=== PATIENT | female | born 1990 | race Caucasian/White ===

== ENCOUNTER 2021-05-09 04:50 | Inpatient (IN) | payer OTHER ==
[2021-05-09] MEDS ORDERED: ELECTROLYTE-148 SOLN 500 ML IV ONE ×2 (05:35→06:35)
[2021-05-09] MEDS ORDERED: ELECTROLYTE-148 SOLN 1,000 ML IV SCH ×2 (08:40→10:30)
[2021-05-09 09:41] VITALS: BMI 27.4
[2021-05-09 09:58] LABS: BASO % 0.2 % (0-2.0); EOS % 0.1 % (0-4.5); HEMATOCRIT 33.2 % (32.4-45.2); LYMPH % 8.5 % (8-40); MCH 25.5 pg (25.7-33.7); MCHC 33.2 g/dl (32.0-36.0); MEAN CELL VOLUME 76.7 fl (80-96); MEAN PLT VOLUME 9.6 fl (7.5-11.1); MONO % 6.6 % (3.8-10.2); NEUT % 84.6 % (42.8-82.8); PLATELET COUNT 166 10^3/uL (134-434); RBC 4.32 M/mm3 (3.60-5.2); RDW 17.7 % (11.6-15.6); WHITE BLOOD COUNT 13.6 K/mm3 (4.0-10.0)
[2021-05-09 10:04] LABS: INR 0.92 (0.83-1.09); PROTHROMBIN TIME (PATIENT) 10.6 SEC (9.7-13.0)
[2021-05-09 10:07] LABS: ACTIVATED PTT 26.4 SECONDS (25.2-36.5)
[2021-05-09 10:17] LABS: CALCIUM 8.9 mg/dL (8.5-10.1)
[2021-05-09 10:18] LABS: BLOOD UREA NITROGEN 8.8 mg/dL (7-18)
[2021-05-09] MEDS ORDERED: FENTANYL/BUPIVACAINE/NS/PF - PCEA - 50 ML DISP.SYRIN EP ONE ×4 (10:20→21:33)
[2021-05-09 10:21] LABS: CREATININE 0.5 mg/dL (0.55-1.3)
[2021-05-09] MEDS: FENTANYL/BUPIVACAINE/NS/PF - PCEA - 50 ML DISP.SYRIN EP SCH ×4 (10:50→21:35)
[2021-05-09] MEDS ORDERED: NALOXONE HCL 0.4 MG/ML VIAL IVPUSH PRN (11:34)
[2021-05-09] MEDS ORDERED: OXYTOCIN 30 UNITS in 0.9% NS 30 UNIT/500 ML INFUS.BAG IVPB SCH (19:45)
[2021-05-09] MEDS ORDERED: LIDOCAINE HCL 1% PRESERVATIVE FREE - 30ML VIAL ONE (23:05)
[2021-05-09] MEDS ORDERED: OXYTOCIN 20 UNITS in 0.9% NS 20 UNIT/1,000 ML INFUS.BAG IV ONE (23:05)
[2021-05-10] MEDS ORDERED: IBUPROFEN 600 MG TABLET (FP) PO PRN ×2 (00:44→11:00)
[2021-05-10] MEDS ORDERED: WITCH HAZEL 50% (TUCKS) 40 PAD/JAR PAD TP PRN ×2 (00:44→04:59)
[2021-05-10] MEDS ORDERED: ACETAMINOPHEN 325 MG TABLET (FP) PO PRN (00:44)
[2021-05-10] MEDS ORDERED: METHYLERGONOVINE MALEATE 0.2 MG/1 ML AMP IM PRN ×2 (00:44→04:59)
[2021-05-10] MEDS ORDERED: oxyCODONE HCL 5 MG TABLET PO PRN ×2 (00:44→04:59)
[2021-05-10] MEDS ORDERED: BISACODYL 10 MG SUPP.RECT RC PRN ×2 (00:44→04:59)
[2021-05-10] MEDS ORDERED: BENZOCAINE 28 GM HEMORRHOIDAL OINTMENT TP PRN ×2 (00:44→04:59)
[2021-05-10] MEDS ORDERED: BENZOCAINE 20% 57 GM BOTTLE TP PRN ×2 (00:44→04:59)
[2021-05-10] MEDS ORDERED: OXYTOCIN 20 UNITS in 0.9% NS 20 UNIT/1,000 ML INFUS.BAG IV SCH ×3 (00:45→04:59)
[2021-05-10] MEDS ORDERED: oxyCODONE HCL 5 MG TABLET ONE (01:00)
[2021-05-10] MEDS ORDERED: METHYLERGONOVINE MALEATE 0.2 MG/1 ML AMP IM ONE (01:30)
[2021-05-10] MEDS ORDERED: OXYTOCIN 10 UNITS/ML VIAL ONE (01:52)
[2021-05-10] MEDS ORDERED: CARBOPROST TROMETHAMINE 250 MCG/ML AMPUL IM ONE (02:00)
[2021-05-10] MEDS ORDERED: CEFAZOLIN 1 GM in DEXTROSE 5%-WATER - 50 ML IVPB ONE ×2 (02:00→11:00)
[2021-05-10] MEDS ORDERED: LIDOCAINE HCL/EPINEPHRINE/PF 20 ML VIAL ONE (02:02)
[2021-05-10] MEDS ORDERED: OXYTOCIN 30 UNITS in 0.9% NS 30 UNIT/500 ML INFUS.BAG IVPB ONE (02:02)
[2021-05-10] MEDS ORDERED: SUCCINYLCHOLINE CHLORIDE 200 MG/10 ML SYRINGE ONE (02:04)
[2021-05-10] MEDS ORDERED: ePHEDrine SULFATE 50 MG/1 ML AMPULE ONE (02:04)
[2021-05-10] MEDS ORDERED: PROPOFOL 20 ML ONE (02:04)
[2021-05-10] MEDS ORDERED: ceFAZolin SODIUM 1 GM VIAL ONE ×3 (02:13→09:18)
[2021-05-10] MEDS ORDERED: LIDOCAINE HCL/PF 2% SDV 5ML VIAL ONE (02:15)
[2021-05-10] MEDS ORDERED: ONDANSETRON 4 MG/2 ML VIAL ONE ×2 (02:15→02:49)
[2021-05-10] MEDS ORDERED: ROCURONIUM BROMIDE 50 MG/5 ML SYRINGE ONE (02:16)
[2021-05-10] MEDS ORDERED: MIDAZOLAM HCL 2 MG/2 ML SINGLE DOSE VIAL ONE ×2 (02:16→03:20)
[2021-05-10] MEDS ORDERED: SODIUM CHLORIDE 0.9% P/F 10 ML VIAL IJ ONE (02:25)
[2021-05-10] MEDS ORDERED: OXYTOCIN 20 UNITS in 0.9% NS 20 UNIT/1,000 ML INFUS.BAG IV ONE (02:38)
[2021-05-10] MEDS ORDERED: ONDANSETRON 4 MG/2 ML VIAL IVPB ONE (02:50)
[2021-05-10] MEDS ORDERED: ceFAZolin SODIUM 1 GM VIAL IVPB ONE (03:13)
[2021-05-10] MEDS ORDERED: TRANEXAMIC ACID 1000 MG/10 ML VIAL ONE (04:30)
[2021-05-10] MEDS ORDERED: ONDANSETRON 4 MG/2 ML VIAL IVPUSH PRN (04:39)
[2021-05-10] MEDS ORDERED: ACETAMINOPHEN 1000 MG/100 ML BAG IVPB ONE (04:39)
[2021-05-10] MEDS ORDERED: NALOXONE HCL 0.4 MG/ML VIAL IVPUSH PRN (04:59)
[2021-05-10] MEDS ORDERED: ACETAMINOPHEN INJECTION 100 ML IVPB ONE (05:02)
[2021-05-10 05:25] LABS: HEMATOCRIT 31.3 % (32.4-45.2); HEMOGLOBIN 9.8 GM/dL (10.7-15.3); MCH 24.9 pg (25.7-33.7); MCHC 31.4 g/dl (32.0-36.0); MEAN CELL VOLUME 79.3 fl (80-96); MEAN PLT VOLUME 11.3 fl (7.5-11.1); PLATELET COUNT 154 10^3/uL (134-434); RBC 3.95 M/mm3 (3.60-5.2); RDW 17.8 % (11.6-15.6); WHITE BLOOD COUNT 24.4 K/mm3 (4.0-10.0)
[2021-05-10 05:44] LABS: CALCIUM 7.6 mg/dL (8.5-10.1)
[2021-05-10 05:45] LABS: BLOOD UREA NITROGEN 6.4 mg/dL (7-18)
[2021-05-10 05:48] LABS: CREATININE 0.5 mg/dL (0.55-1.3)
[2021-05-10 06:40] LABS: INR 0.93 (0.83-1.09); PROTHROMBIN TIME (PATIENT) 10.7 SEC (9.7-13.0)
[2021-05-10] MEDS ORDERED: DEXTROSE 5%-WATER - 50 ML IVPB ONE (09:18)
[2021-05-10] MEDS: DOCUSATE SODIUM 100 MG CAPSULE (FP) PO SCH ×2 (09:21→22:14)
[2021-05-10] MEDS: ACETAMINOPHEN 325 MG TABLET (FP) PO SCH ×2 (11:00→18:45)
[2021-05-10 12:19] LABS: ANISOCYTOSIS 0; MACROCYTOSIS 0
[2021-05-10] MEDS: SENNOSIDES/DOCUSATE COMBO (SENNA PLUS) TABLET (UD) PO SCH (22:14)
[2021-05-11] MEDS: ACETAMINOPHEN 325 MG TABLET (FP) PO SCH ×4 (05:54→22:08)
[2021-05-11] MEDS ORDERED: ACETAMINOPHEN 325 MG TABLET (FP) PO SCH (06:03)
[2021-05-11 08:32] LABS: BASO % 0.3 % (0-2.0); EOS % 0.7 % (0-4.5); HEMATOCRIT 19.7 % (32.4-45.2); LYMPH % 14.9 % (8-40); MCH 25.3 pg (25.7-33.7); MCHC 32.3 g/dl (32.0-36.0); MEAN CELL VOLUME 78.1 fl (80-96); MEAN PLT VOLUME 10.7 fl (7.5-11.1); MONO % 7.2 % (3.8-10.2); NEUT % 76.9 % (42.8-82.8); PLATELET COUNT 129 10^3/uL (134-434); RBC 2.52 M/mm3 (3.60-5.2); WHITE BLOOD COUNT 15.2 K/mm3 (4.0-10.0)
[2021-05-11 08:56] LABS: HEMOGLOBIN 6.4 GM/dL (10.7-15.3)
[2021-05-11] MEDS: DOCUSATE SODIUM 100 MG CAPSULE (FP) PO SCH ×2 (09:39→22:08)
[2021-05-11] MEDS: FERROUS SO4 325 MG TABLET (FP) PO SCH ×3 (09:40→17:12)
[2021-05-11] MEDS: SENNOSIDES/DOCUSATE COMBO (SENNA PLUS) TABLET (UD) PO SCH (21:14)
[2021-05-11] MEDS ORDERED: SENNOSIDES/DOCUSATE COMBO (SENNA PLUS) TABLET (UD) PO PRN (22:00)
[2021-05-12] MEDS: FERROUS SO4 325 MG TABLET (FP) PO SCH ×2 (08:39→12:00)
[2021-05-12 09:22] LABS: BASO % 0.2 % (0-2.0); HEMATOCRIT 21.1 % (32.4-45.2); LYMPH % 13.3 % (8-40); MCH 25.9 pg (25.7-33.7); MCHC 33.4 g/dl (32.0-36.0); MEAN CELL VOLUME 77.6 fl (80-96); MEAN PLT VOLUME 9.5 fl (7.5-11.1); MONO % 5.6 % (3.8-10.2); NEUT % 79.9 % (42.8-82.8); PLATELET COUNT 158 10^3/uL (134-434); RBC 2.72 M/mm3 (3.60-5.2); RDW 17.7 % (11.6-15.6); WHITE BLOOD COUNT 12.5 K/mm3 (4.0-10.0)
[2021-05-12 09:58] LABS: ANISOCYTOSIS 0; HELMET CELLS 0; HOWELL-JOLLY BODIES 0; MACROCYTOSIS 0; OVALOCYTE 0; ROULEAU 0; SICKELED CELLS 0; TARGET CELLS 0; TEAR DROP CELLS 0; TOXIC GRANULATION 0
[2021-05-12] MEDS: DOCUSATE SODIUM 100 MG CAPSULE (FP) PO SCH (10:11)
[2021-05-12 10:54] VITALS: BP 117/70; PULSE 97; TEMP 98.2
== END 2021-05-12 12:50 | disposition home or self-care (01) | DRG 806 ==
LOC: JDEL 04:50 → JLDR 09:15 → J3W 05-10 06:00
PROVIDERS: ADMIT Specialist; ATTEND Specialist
PROC: 0W8NXZZ Division of Female Perineum, External Approach (ICD-10-PCS; 2021-05-10)
PROC: 0W8NXZZ Division of Female Perineum, External Approach (ICD-10-PCS; 2021-05-10)
PROC: 0UCG7ZZ Extirpation of Matter from Vagina, Via Natural or Artificial Opening (ICD-10-PCS; 2021-05-10)
PROC: 10E0XZZ Delivery of Products of Conception, External Approach (ICD-10-PCS; principal; 2021-05-10 02:50)
DX: O48.0 Post-term pregnancy (principal); O72.1 Other immediate postpartum hemorrhage; Z37.0 Single live birth; Z3A.40 40 weeks gestation of pregnancy
CPT/HCPCS: 36415; 36430; 36511; 59409; 80048; 85025; 85610; 85730; 86780; 86850; 86900; 86901; 86922; 94760; C9803; P9038; P9058; U0003; U0005

== ENCOUNTER 2024-05-23 19:45 | Inpatient (IN) | payer OTHER ==
[2024-05-23] MEDS: DINOPROSTONE 10 MG VAGINAL SUPPOSITORY VG ONE (21:50)
[2024-05-23 21:59] VITALS: BMI 30.5
[2024-05-23 21:59] LABS: ABSOLUTE IMMATURE GRANULOCYTES 0.11 x10^3/uL (0.0-0.031); BASOPHILS # 0.04 x10^3/uL (0.01-0.08); EOSINOPHIL % 0.5 % (0.7-5.8); EOSINOPHILS # 0.05 x10^3/uL (0.04-0.36); HEMATOCRIT 36.7 % (34.1-44.9); MCHC 32.7 g/dl (32.2-35.5); MEAN PLT VOLUME 12.6 fl (9.4-12.3); MONOCYTE # 0.74 x10^3/uL (0.24-0.86); MONOCYTE % 6.9 % (4.7-12.5); PLATELET COUNT # 153 x10^3/uL (182-369); RDW 12.6 % (12.1-16.8)
[2024-05-23 22:06] LABS: INR 0.94 (0.83-1.09); PROTHROMBIN TIME (PATIENT) 10.3 SEC (9.7-13.0)
[2024-05-23 22:09] LABS: ACTIVATED PTT 26.1 SECONDS (25.2-36.5)
[2024-05-23 22:23] LABS: POTASSIUM 3.7 mmol/L (3.5-5.1)
[2024-05-23 22:24] LABS: CALCIUM 9.1 mg/dL (8.5-10.1)
[2024-05-23 22:25] LABS: BLOOD UREA NITROGEN 10.2 mg/dL (7-18)
[2024-05-23 22:28] LABS: CREATININE 0.5 mg/dL (0.55-1.3)
[2024-05-23] MEDS ORDERED: ZOLPIDEM TARTRATE 5 MG TABLET ONE (23:17)
[2024-05-23] MEDS: ELECTROLYTE-148 SOLN 1,000 ML IV SCH (23:20)
[2024-05-23] MEDS: ZOLPIDEM TARTRATE 5 MG TABLET PO ONE (23:30)
[2024-05-24] MEDS: OXYTOCIN 30 UNITS in 0.9% NS 30 UNIT/500 ML INFUS.BAG IVPB SCH (08:00)
[2024-05-24] MEDS ORDERED: OXYTOCIN 30 UNITS in 0.9% NS 30 UNIT/500 ML INFUS.BAG IVPB ONE (08:03)
[2024-05-24] MEDS ORDERED: FENTANYL/BUPIVACAINE/NS/PF - PCEA - 50 ML DISP.SYRIN EP ONE (12:50)
[2024-05-24] MEDS: FENTANYL/BUPIVACAINE/NS/PF - PCEA - 50 ML DISP.SYRIN EP SCH (13:30)
[2024-05-24] MEDS ORDERED: NALOXONE HCL 0.4 MG/ML VIAL IVPUSH PRN (13:45)
[2024-05-24] MEDS ORDERED: LIDOCAINE HCL 1% PRESERVATIVE FREE - 30ML VIAL ONE (15:49)
[2024-05-24] MEDS ORDERED: OXYTOCIN 20 UNITS in 0.9% NS 20 UNIT/1,000 ML INFUS.BAG IV ONE (15:50)
[2024-05-24] MEDS: METHYLERGONOVINE MALEATE 0.2 MG/1 ML AMP IM PRN (16:32)
[2024-05-24] MEDS: OXYTOCIN 20 UNITS in 0.9% NS 20 UNIT/1,000 ML INFUS.BAG IV SCH (17:00)
[2024-05-24] MEDS ORDERED: MISOPROSTOL 200 MCG TABLET ONE (17:03)
[2024-05-24] MEDS: MISOPROSTOL 200 MCG TABLET PO ONE (17:06)
[2024-05-24] MEDS ORDERED: ACETAMINOPHEN 325 MG TABLET (FP) PO PRN (17:47)
[2024-05-24] MEDS ORDERED: oxyCODONE HCL 5 MG TABLET PO PRN (17:47)
[2024-05-24] MEDS ORDERED: BISACODYL 10 MG SUPP.RECT RC PRN (17:47)
[2024-05-24] MEDS: METHYLERGONOVINE MALEATE 0.2 MG/1 ML AMP IM ONE (18:30)
[2024-05-25] MEDS: PROMETHAZINE HCL 25 MG/1 ML VIAL IVPB ONE (07:04)
[2024-05-25] MEDS: BUTORPHANOL TARTRATE 2 MG/ML VIAL IVPB ONE (07:04)
[2024-05-25 07:35] LABS: ABSOLUTE IMMATURE GRANULOCYTES 0.12 x10^3/uL (0.0-0.031); BASOPHILS # 0.03 x10^3/uL (0.01-0.08); EOSINOPHIL % 0.3 % (0.7-5.8); EOSINOPHILS # 0.04 x10^3/uL (0.04-0.36); HEMOGLOBIN 9.8 g/dL (11.2-15.7); MCHC 32.7 g/dl (32.2-35.5); MEAN CELL VOLUME 86.5 fl (79.4-94.8); MEAN PLT VOLUME 12.7 fl (9.4-12.3); MONOCYTE # 0.99 x10^3/uL (0.24-0.86); MONOCYTE % 7.2 % (4.7-12.5); PLATELET COUNT # 137 x10^3/uL (182-369); RDW 12.6 % (12.1-16.8)
[2024-05-25] MEDS: IBUPROFEN 600 MG TABLET (FP) PO PRN (11:19)
[2024-05-25] MEDS ORDERED: SENNOSIDES/DOCUSATE COMBO (SENNA PLUS) TABLET (UD) PO PRN (22:00)
[2024-05-25] MEDS: BENZOCAINE 20% 57 GM BOTTLE TP PRN (23:04)
[2024-05-25] MEDS: WITCH HAZEL 50% (TUCKS) 40 PAD/JAR PAD TP PRN (23:04)
[2024-05-25] MEDS: BENZOCAINE 28 GM HEMORRHOIDAL OINTMENT TP PRN (23:05)
[2024-05-26 08:24] VITALS: BP 119/73; PULSE 85; RESP 17; TEMP 98.5
== END 2024-05-26 12:25 | disposition home or self-care (01) | DRG 807 ==
LOC: JLDR 19:45 → J3W 05-24 19:44
PROVIDERS: ADMIT Specialist; ATTEND Specialist
PROC: 10E0XZZ Delivery of Products of Conception, External Approach (ICD-10-PCS; principal; 2024-05-24)
DX: O48.0 Post-term pregnancy (principal); Z37.0 Single live birth; Z3A.41 41 weeks gestation of pregnancy
CPT/HCPCS: 36415; 59409; 80048; 85025; 85610; 85730; 86780; 86850; 86900; 86901